=== PATIENT | male | born 1975 | race Caucasian/White ===

== ENCOUNTER 2017-01-11 12:29 | Emergency (ER) | payer OTHER ==
[~2017-01-11] VITALS: Ht 188 cm; Wt 67.3 kg
[~2017-01-11 12:29] MED LIST: ABILIFY15 MG PO; CALCIUM 500 WI1 EAC2 PO; CLONIDINE HCL0.1 MG PO; CYMBALTA30 MG PO; ELAVIL25 MG PO; ENBREL50 MG/1 ML SC; ENDOCET 10-3251 EACH PO; FENTANYL1 EAC5 TD; INDOCIN50 MG PO; PREDNISONE2.5 MG PO; PREDNISONE5 MG PO; SULFAZINE500 MG PO; WELLBUTRIN SR150 MG PO; ZOFRAN ODT4 MG PO
[2017-01-11 13:08] LABS: EOSINOPHIL (%) 0 % (0-5); HEMATOCRIT 49.9 % (38.0-50.0); IMMATURE GRANULOCYTE (%) 0.4 % (0.0-0.7); INSTRUMENT ABS NEUTROPHIL CT 10.3 K/uL; LYMPHOCYTE COUNT 0.5 K/uL (1.0-2.8); MCH 30.3 PG (29.0-34.0); MCHC 35.1 G/DL (30.0-36.0); MCV 86.3 FL (86-99); MEAN PLAT.VOLUME 10.3 uM^3 (9.0-12.4); MONOCYTE (%) 3.2 % (3-12); MONOCYTE COUNT 0.4 K/uL (0-0.8); NEUTROPHIL (%) 91.7 % (45-76); NEUTROPHIL COUNT 10.3 K/uL (1.8-6.4); PLATELET COUNT 289 K/uL (156-360); RBC DIS.WIDTH-CV 11.7 % (11.8-14.6); RBC DIS.WIDTH-SD 36.9 % (39-53); RED BLOOD COUNT 5.78 M/uL (4.00-5.50); WHITE BLOOD COUNT 11.2 K/uL (4.1-10.2)
[2017-01-11 13:37] LABS: ANION GAP 11 MEQ/L (2-14); CHLORIDE 103 MEQ/L (99-109); POTASSIUM 4.2 MEQ/L (3.7-5.4); SAMPLE HEMOLYSIS CHECK 0; SAMPLE ICTERIC CHECK 0; SAMPLE LIPEMIA CHECK 0; SODIUM 139 MEQ/L (136-147); TOTAL BILIRUBIN 0.6 MG/DL (0.0-1.0)
[2017-01-11 13:43] LABS: ALKALINE PHOSPHATASE 63 IU/L (3-129); GFR ESTIMATE (CALCULATED) > 59 mL/min/; GLUCOSE 134 mg/dL (70-99); UREA NITROGEN (BUN) 11 mg/dL (9-23)
[2017-01-11] MEDS ORDERED: ZOFRAN ODT4 MG PO (14:28)
[2017-01-11 14:37] VITALS: BP 138/80
== END 2017-01-11 15:01 | disposition home or self-care (01) ==
LOC: EME → EDBD 12:29 → EME 12:29
PROVIDERS: Emergency Medicine
DX: R11.2 Nausea with vomiting, unspecified (principal); M79.1 Myalgia; B34.9 Viral infection, unspecified; F17.200 Nicotine dependence, unspecified, uncomplicated; Z88.0 Allergy status to penicillin; M79.7 Fibromyalgia; M13.0 Polyarthritis, unspecified
CPT/HCPCS: 80053; 85025; 93005; 99281; 99285; J1885; J2405; J7030

== ENCOUNTER 2017-08-03 06:10 | Emergency (ER) | payer OTHER ==
[~2017-08-03] VITALS: Ht 188 cm; Wt 65.7 kg
[2017-08-03 06:58] LABS: EOSINOPHIL (%) 0.5 % (0-5); HEMATOCRIT 44.2 % (38.0-50.0); IMMATURE GRANULOCYTE (%) 0.4 % (0.0-0.7); INSTRUMENT ABS NEUTROPHIL CT 4.2 K/uL; LYMPHOCYTE COUNT 0.8 K/uL (1.0-2.8); MCH 30.2 PG (29.0-34.0); MCHC 34.4 G/DL (30.0-36.0); MCV 87.9 FL (86-99); MEAN PLAT.VOLUME 9.5 uM^3 (9.0-12.4); MONOCYTE COUNT 0.7 K/uL (0-0.8); NEUTROPHIL (%) 73.2 % (45-76); NEUTROPHIL COUNT 4.2 K/uL (1.8-6.4); PLATELET COUNT 221 K/uL (156-360); RBC DIS.WIDTH-CV 11.6 % (11.8-14.6); RBC DIS.WIDTH-SD 37.2 % (39-53); RED BLOOD COUNT 5.03 M/uL (4.00-5.50); WHITE BLOOD COUNT 5.7 K/uL (4.1-10.2)
[2017-08-03 07:19] LABS: ANION GAP 5 MEQ/L (2-14); CHLORIDE 104 MEQ/L (99-109); POTASSIUM 4.3 MEQ/L (3.7-5.4); SAMPLE HEMOLYSIS CHECK 0; SAMPLE ICTERIC CHECK 0; SAMPLE LIPEMIA CHECK 0; SODIUM 137 MEQ/L (136-147)
[2017-08-03 07:24] LABS: ADD MIUA? NO; BILIRUBIN NEGATIVE; BLOOD NEGATIVE; COLOR YELLOW ((YELLOW)); GLUCOSE (STRIP) NEGATIVE; KETONES NEGATIVE; LEUKOCYTES NEGATIVE; NITRITE NEGATIVE; PROTEIN (STRIP) NEGATIVE; SPECIFIC GRAVITY 1.015 (1.000-1.030); UROBILINOGEN 0.2 MG/DL (0.2-1.0)
[2017-08-03 07:28] LABS: AMPHETAMINE PRESUMPTIVE POSITIVE (500 ng/mL); BARBITURATES NEGATIVE (200 ng/mL); BENZODIAZEPINES PRESUMPTIVE POSITIVE (150 ng/mL); COCAINE NEGATIVE (150 ng/mL); INTERNAL CONTROLS VALID? YES; METHADONE NEGATIVE (200 ng/mL); METHAMPHETAMINE NEGATIVE (500 ng/mL); OPIATES (MORPHINE) NEGATIVE (100 ng/mL); OXYCODONE PRESUMPTIVE POSITIVE (100 ng/mL); PHENCYCLIDINE NEGATIVE (25 ng/mL); PROPOXYPHENE NEGATIVE (300 ng/mL); THC CANNABINOIDS PRESUMPTIVE POSITIVE (50 ng/mL); TRICYCLIC ANTIDEPRESSANTS NEGATIVE (300 ng/mL)
[2017-08-03 07:29] LABS: ADD MEDTOX COMMENT Y
[2017-08-03 07:43] LABS: GFR ESTIMATE (CALCULATED) > 59 mL/min/; GLUCOSE 93 mg/dL (70-99); SERUM ETHYL ALCOHOL < 10 mg/dL; UREA NITROGEN (BUN) 12 mg/dL (9-23)
[2017-08-03 09:12] VITALS: BP 98/70
== END 2017-08-03 09:13 | disposition home or self-care (01) ==
LOC: EME 06:10
PROVIDERS: Emergency Medicine
DX: F33.2 Major depressive disorder, recurrent severe without psychotic features (principal); F12.20 Cannabis dependence, uncomplicated; F41.9 Anxiety disorder, unspecified; F17.200 Nicotine dependence, unspecified, uncomplicated; M79.7 Fibromyalgia; Z88.0 Allergy status to penicillin
CPT/HCPCS: 80048; 81003; 84999; 85025; 90839; 99281; 99284; G0480

== ENCOUNTER 2018-01-13 17:13 | Emergency (ER) | payer OTHER ==
[~2018-01-13] VITALS: Ht 188 cm; Wt 63.6 kg
[2018-01-13 18:00] LABS: HEMATOCRIT 40.4 % (38.0-50.0); MCH 30.6 PG (29.0-34.0); MCHC 34.9 G/DL (30.0-36.0); MCV 87.6 FL (86-99); PLATELET COUNT 180 K/uL (156-360); RBC DIS.WIDTH-CV 11.9 % (11.8-14.6); RBC DIS.WIDTH-SD 38.6 % (39-53); RED BLOOD COUNT 4.61 M/uL (4.00-5.50); WHITE BLOOD COUNT 15.6 K/uL (4.1-10.2)
[2018-01-13 18:01] LABS: HEMOGLOBIN 14.1 G/DL (12.5-16.6)
[2018-01-13 18:07] LABS: D-DIMER ELISA < 150.00 ng/mLDDU (<230)
[2018-01-13 18:08] LABS: CHLORIDE 105 mEq/L (99-109); POTASSIUM 3.6 mEq/L (3.7-5.4); SODIUM 139 mEq/L (136-147)
[2018-01-13 18:10] LABS: GLUCOSE 111 mg/dL (70-99)
[2018-01-13 18:14] LABS: GFR ESTIMATE (CALCULATED) > 59 mL/min/ (58.99-99999)
[2018-01-13 18:15] LABS: UREA NITROGEN (BUN) 12 mg/dL (9-23)
[2018-01-13 18:22] LABS: TROP-I INTERPRETATION NEGATIVE; TROPONIN-I < 0.01 ng/mL (0.0-0.30)
[2018-01-13 22:00] LABS: TROP-I INTERPRETATION NEGATIVE; TROPONIN-I < 0.01 ng/mL (0.0-0.30)
[2018-01-13] MEDS ORDERED: AUGMENTIN875 MG PO (22:21)
[2018-01-13] MEDS ORDERED: ATIVAN0.5 MG PO (22:36)
[2018-01-13] MEDS ORDERED: ATARAX,VISTARIL25 MG PO (22:36)
[2018-01-13 22:50] VITALS: BP 123/79
== END 2018-01-13 23:00 | disposition home or self-care (01) ==
LOC: EME 17:13
PROVIDERS: Physician Assistant
DX: R07.9 Chest pain, unspecified (principal); Z98.890 Other specified postprocedural states; R91.8 Other nonspecific abnormal finding of lung field; M79.7 Fibromyalgia; G89.4 Chronic pain syndrome; M46.90 Unspecified inflammatory spondylopathy, site unspecified; M13.0 Polyarthritis, unspecified; F17.200 Nicotine dependence, unspecified, uncomplicated; Z79.891 Long term (current) use of opiate analgesic; Z88.0 Allergy status to penicillin
CPT/HCPCS: 71046; 71275; 80048; 84484; 85027; 85379; 93005; 99281; 99284; J3010; J7030